=== PATIENT | male | born 1990 | race Caucasian/White ===

== ENCOUNTER 2016-11-20 19:21 | Emergency (ER) | payer BC, OTHER ==
[2016-11-20 20:10] VITALS: RESP 16; TEMP 97.2
--- NOTE | 2016-11-21 02:00 | PDOC ---
Foot / Ankle Injury - General Chief Complaint: Lower Extremity Problem/Injury Stated Complaint: STEPPED IN HOLE RIGHT ANKLE INJURY Date Seen by Provider: 11/20/16 Time Seen by Provider: 19:30 Source: POSITIVE: Patient Exam Limitations: POSITIVE: No limitations Nurse's Notes Reviewed & Considered: Yes - History of Present Illness Initial Comments: The patient is a 26-year-old male. Approximately 2-1/2 hours [employer] he stepped into a hole. He estimated the depth of the hole to be for 5 inches. He fell forward and forced his right ankle into dorsiflexion and inversion. He complains of pain to the ankle, especially the lateral aspect, with considerable swelling laterally. He was initially bearing weight on his left foot, but with pain. He presents to the emergency room with an antalgic gait. He states it is becoming progressively more uncomfortable for him to try to walk on the injured leg. He denies any other injuries. Have you received a tetanus shot in the past 10 years?: Unknown Location: Right Ankle Timing: REPORTS: Abrupt Duration: 1-3 hours (approximately 2 and half hours [employer]) Severity: Moderate Quality: REPORTS: "Pain" Context: REPORTS: Fall, Twist Modifying Factors: REPORTS: Movement, Other (exacerbated by weightbearing) Associated Symptoms: REPORTS: Swelling (over lateral aspect of ankle). DENIES: Tingling Distally, Numbness Distally Any Prior Injuries Related to Current Complaint?: No - Patient Allergies Allergies/Adverse Reactions: Allergies Allergy/AdvReac Type Severity Reaction Status Date / Time walnut Allergy HIVES Verified 11/20/16 19:56 - Patient Home Medications Home Medications: Home Medications Ibuprofen [Advil] 1 cap PO PRN PRN 11/20/16 Past Medical History - heen HEENT History: Denies History Cardiovascular History: Denies History Respiratory History: Denies History Gastrointestinal History: Denies History Genitourinary History: Kidney Stones Endocrine History: Denies History Musculoskeletal History: Denies History Neurological History: Denies History Blood Disorders: Denies History Psychiatric History: Denies History History of Sexually Transmitted Diseases: No Male Reproductive History: Denies History Cancer History: Denies History In Past Year Been Physically Harmed or Verbally Threatened: No History of MDRO: No History of Other Communicable Diseases: No Tobacco Use: Never Smoker Alcohol Use: Occasionally Substance Use Type: None Previous Surgical History: No Significant Family History: No pertinent family hx Past Medical History Reviewed: Reviewed - No Changes ROS - Limitations ROS Limitations: No Limitations Constitution: REPORTS: Denies Symptoms Cardiovascular: REPORTS: Denies Cardiac Symptoms Respiratory: REPORTS: Denies Resp Symptoms Neurological: REPORTS: Denies Neuro Symptoms Gastrointestinal: REPORTS: Denies GI Symptoms Endocrine: REPORTS: Denies Symptoms Musculoskeletal: REPORTS: Joint Pain (Right ankle), Lower Extremity Swelling ( Swelling over lateral aspect of right ankle), Recent Injury (See above) Genitourinary: REPORTS: Denies Symptoms Eyes: REPORTS: Denies Symptoms ENT: REPORTS: Denies Symptoms Skin: REPORTS: Denies Skin Symptoms Lympathic: REPORTS: Denies Lympathic Symptoms Immunologic: POSITIVE: Denies Symptoms Psychiatric: POSITIVE: Denies Psych Symptoms Foot / Ankle Exam - General Appearance General Appearance: POSITIVE: Alert, Cooperative, No Acute Distress. NEGATIVE: No Evidence of Trauma - Extremities Foot: POSITIVE: Normal Inspection, Non-Tender Ankle: POSITIVE: Stable, Soft-Tissue Tenderness, Bony Tenderness, Swelling, See Diagram. NEGATIVE: Ecchymosis, Limited ROM, Deformity, Ligamentous Instability Gait: POSITIVE: Antalgic Gait Neuro: POSITIVE: Sensation Normal, Motor Normal Vascular: POSITIVE: No Vascular Compromise, Full Pulses, Equal Pulses Tendons: POSITIVE: Tendon Function Normal Skin: POSITIVE: Warm, Dry - Neck / Back Neck / Back: Normal Inspection - Respiratory / CVS Respiratory / CVS: POSITIVE: Chest Non-Tender, No Respiratory Distress, Heart Sounds Normal, Regular Rate/Rhythm, Breath Sounds Normal Peripheral Pulses: Radial (R): 2+, Radial (L): 2+, Dorsalis-pedis (R): 2+, Dorsalis-pedis (L): 2+ Images - Lower Extremities Lower Extremities: 1 - Pain on palpation with swelling Procedures - Splinting Time Splint Applied: 19:55 Location: Cam Walker, right ankle Pre-Proc Neuro Vasc Exam: Normal Splint Type: CAM Walker (Patient has crutches) Splint Form: Short Extremity Applied By:: Nurse Post-Proc Neuro Vasc Exam: Normal Foot / Ankle Progress - Results Reviewed by me Pain Medication Addressed: POSITIVE: Yes (recommended Advil or Tylenol) School/Work Release Addressed: POSITIVE: Yes (Limited weight-bearing for 10 days ) Xrays/CTs/US Reviewed by me: Yes Discussed with Radiologist: No Radiology Results: POSITIVE: Right, Ankle Radiology Findings: No fractures or dislocations seen by my interpretation; radiologist interpretation pending. - Patient's Progress Re-Examine Time:: 20:00 Re-Examine Comment: Cam Walker placed which seems to help discomfort somewhat Status: POSITIVE: Unchanged, Re-Examined - Consult Counseled: POSITIVE: Patient, RE: Radiology Results, RE: DX, RE: Need for F/U Patient Care Time - Estimated PCT Patient Care Time (In Minutes): 30 Vital Signs - Recent Vital Signs Vital Signs: Vital Signs (Last 8 hours) Temp Pulse Resp BP Pulse Ox 11/20/16 19:33 97.2 F 139 H 16 119/90 94 - VS Reviewed Vital Signs Reviewed: Yes Discharge Clinical Impression: Sprain of ankle Discharge Disposition: Discharged to Home Condition: Stable Patient Instructions Given at Discharge: Ankle Sprain (ED) Additional Instructions: I see no fractures on your x-ray. You do, however, at least have a severe sprain to your right ankle. Wear cam walker for about 10 days. If you're not able to bear weight comfortably using the cam walker only, use crutches and bear no weight on the right leg for 3 or 4 days, and then try weightbearing with the cam walker. Tylenol or Advil for pain. Cool compresses. Elevate leg. Follow-up with your primary care provider or in the orthopedic clinic if you're not back to normal in 10 to 12 days. Return here anytime if condition worsens, or as necessary. Follow Up With: NONE,NONE [Primary Care Provider] - (Instructions as above. Follow-up with your primary care provider. Return here as necessary.)
--- NOTE | 2016-11-22 21:02 | DI ---
RIGHT ANKLE, 11/20/2016 7:39 PM: Clinical History: Injury. Previous Exam: None at this facility. 3 views are submitted. There is marked soft tissue swelling laterally over the lateral malleolus and anterior over the distal tibia with a small to moderate posterior joint effusion. The ankle mortise i s intact. On the AP projection, there is an area of increased density at the tip of the fibula and th is may represent periosteal avulsion associated with injury to the tibiofibular ligaments and/or the calcaneofibular ligament. The remainder of the exam is normal. Reading: Marked soft tissue swelling anteriorly and laterally without an obvious fracture. There is a question able avulsion fracture at the tip of the fibula. The ankle mortise is intact.
== END 2016-11-20 20:36 | disposition home or self-care (01) ==
LOC: ER 19:21
DX: S93.401A Sprain of unspecified ligament of right ankle, initial encounter (principal); X50.1XXA Overexertion from prolonged static or awkward postures, initial encounter
CPT/HCPCS: 73610; 99282; 99283